=== PATIENT | male | born 1975 | race African-American/Black ===

== ENCOUNTER 2023-02-19 14:20 | Emergency (ER) | payer SELFPAY ==
[~2023-02-19] VITALS: Ht 170.2 cm; Wt 68.0 kg
[2023-02-19 14:32] VITALS: BP 125/88; PULSE 90; RESP 16; TEMP 98; O2SAT 99
[2023-02-19 15:36] LABS: ADD RBC MORPHOLOGY YES; BASOPHILS % 0.6 % (0.0-2.0); DIFFERENTIAL COMMENT 1; EOSINOPHILS % 0.1 % (0.0-5.0); HEMATOCRIT. 43.1 % (42.0-52.0); HEMOGLOBIN. 13.6 g/dL (14.0-18.0); LYMPHOCYTES % 27.9 % (20.0-50.0); MEAN CORPUSCULAR HEMOGLOBIN 34.6 pg (28.0-32.0); MEAN CORPUSCULAR HGB CONC 31.5 g/dL (31.0-37.0); MEAN PLATELET VOLUME 7.2 fl (7.4-10.4); MONOCYTES % 5.7 % (2.0-8.0); NEUTROPHILS % 65.7 % (40.0-76.0); PLATELET 322 x1000/uL (130-400); RED BLOOD CELL COUNT 3.92 mill/uL (4.7-6.1); WHITE BLOOD COUNT 5.2 x1000/uL (4.5-11.0)
[2023-02-19 15:57] LABS: PLATELET ESTIMATE NORMAL
[2023-02-19 18:50] LABS: ACETAMINOPHEN 3 ug/mL (10-30); ALANINE AMINOTRANSFERASE 39 IU/L (10-49); ALBUMIN 4.4 g/dL (3.2-4.8); ASPARTATE AMINOTRANSFERASE 62 IU/L (<34); BILIRUBIN TOTAL 0.2 mg/dL (0.1-1.0); CALCIUM 8.9 mg/dL (8.7-10.4); CARBON DIOXIDE 20 mEq/L (21-32); CHLORIDE 101 mEq/L (98-107); CREATININE 0.8 mg/dL (0.6-1.3); GLUCOSE 159 mg/dL (70-105); POTASSIUM 5.4 mEq/L (3.5-5.1); PROTEIN TOTAL 7.9 g/dL (6.0-8.3); SODIUM 137 mEq/L (136-145); UREA NITROGEN BLOOD 9 mg/dL (9-23)
== END 2023-02-19 21:30 | disposition home or self-care (01) ==
LOC: EDBD 14:20 → ER 14:20
DX: F10.129 Alcohol abuse with intoxication, unspecified (principal); Y90.0 Blood alcohol level of less than 20 mg/100 ml
CPT/HCPCS: 80053; 80307; 85025; 36415; 93005; 99284; Z7610 ×2